=== PATIENT | female | born 1945 | race Caucasian/White ===

== ENCOUNTER 2019-03-10 06:25 | Day surgery (SDC) | payer OTHER ==
[~2019-03-10 06:25] MED LIST: AMARYL PO; COZAAR100 MG PO; GABAPENTIN100 MG PO; NORVASC10 MG PO; PRAVASTATIN SOD20 MG PO; SINGULAIR10 MG PO; TRAMADOL HCL50 MG PO; ZOVIRAX400 M1 PO
[2019-03-10] MEDS ORDERED: MACROBID 100 M100 MG PO (10:33)
[2019-03-10] MEDS ORDERED: ULTRACET PO (10:34)
== END 2019-03-10 12:35 | disposition home or self-care (01) ==
LOC: CIR.AMB 06:25
DX: N81.3 Complete uterovaginal prolapse (principal)